=== PATIENT | female | born 1960 | race Caucasian/White ===

== ENCOUNTER → 2017-10-24 | Outpatient (CLI) | payer OTHER ==
--- NOTE | 2017-10-24 13:46 | DIAGNOSTIC IMAGING REPORT ---
CT LUNG SCREENING, LOW DOSE WITH COMPUTER-AIDED DETECTION (CAD) CLINICAL HISTORY: 57 years-old Female presenting with SMOKER. CT DOSE (mGy.cm): The estimated cumulative dose is 72.52 mGycm. TECHNIQUE: Multidetector CT imaging of the chest was performed without the use of intravenous contrast. IV contrast: None. A dose lowering technique was used consistent with the principles of ALARA (as low as reasonably achievable). Additional postprocessing was performed on a separate [employer] workstation by the radiologist for computer-aided detection and 3-D volumetric segmentation of pulmonary nodules. COMPARISON: None. FINDINGS: Network Account Manager topogram: Unremarkable. On soft tissue windows, normal thyroid and thoracic inlet. No axillary, supraclavicular, or mediastinal lymphadenopathy. Evaluation of the derrick limited without intravenous contrast. Normal aorta. Normal heart size. No pericardial or pleural effusion. Upper abdomen normal. On lung windows, two solid fissural nodules in the right lower lobe the larger measuring 6 mm (series 4 image 61) and the smaller measuring 5 mm (series 4 image 67). Solid 2 mm nodule in the periphery of the right lower lobe (series 4 image 73). Solid triangular peripheral 4 mm nodule noted in the left lower lobe (series 4 image 82). Paraseptal emphysematous changes at the apices. Bronchial wall thickening. Central airways patent. On bone windows, degenerative changes of the spine. CAD FINDINGS: Nodule 1 Category: 2 Nodule 1 Status: Baseline Nodule 1 Description: Solid Nodule 1 Lesion ID: 1 Nodule 1 Slice Number: 88 Nodule 1 Volume (mm3): 95 Nodule 1 Major Palmer mm: 7.9 Nodule 1 Minor Palmer mm: 4.3 Nodule 2 Category: 2 Nodule 2 Status: Baseline Nodule 2 Description: Solid Nodule 2 Lesion ID: 3 Nodule 2 Slice Number: 66 Nodule 2 Volume (mm3): 38 Nodule 2 Major Palmer mm: 4.9 Nodule 2 Minor Palmer mm: 3.0 Nodule 3 Category: 2 Nodule 3 Status: Baseline Nodule 3 Description: Solid Nodule 3 Lesion ID: 4 Nodule 3 Slice Number: 82 Nodule 3 Volume (mm3): 37 Nodule 3 Major Palmer mm: 5.2 Nodule 3 Minor Palmer mm: 2.3 Nodule 4 Category: 2 Nodule 4 Status: Baseline Nodule 4 Description: Solid Nodule 4 Lesion ID: 1 Nodule 4 Slice Number: 88 Nodule 4 Volume (mm3): 95 Nodule 4 Major Palmer mm: 7.9 Nodule 4 Minor Palmer mm: 4.3 Overall Lung RADS Category: 2 Lung RADS Management Recommendation: Continue annual lung cancer screening. Lung RADS Follow Up Date: 2018-10-24 Lung RADS Nodule ID: 1 IMPRESSION: 1. Multiple solid pulmonary nodules measuring up to 6 mm. Continue annual lung cancer screening. 2. Apical paraseptal emphysema. Electronically signed by: Pardeep Lyons M.D. 10/24/2017 1:45 PM Dictated Date/Time: 10/24/2017 1:29 PM
== END | disposition home or self-care (01) ==
LOC: C.CTS 13:01
PROVIDERS: ATTEND Family Medicine
DX: F17.210 Nicotine dependence, cigarettes, uncomplicated (principal); Z12.2 Encounter for screening for malignant neoplasm of respiratory organs; R91.1 Solitary pulmonary nodule; J43.8 Other emphysema